=== PATIENT | female | born 1990 | race Caucasian/White ===

== ENCOUNTER 2020-03-06 16:20 | Inpatient (IN) ==
[2020-03-06] MEDS ORDERED: BUTORPHANOL TARTRATE 2 MG/ML VIAL IV PRN ×2 (16:45)
[2020-03-06] MEDS ORDERED: RINGER'S SOLUTION,LACTATED 1,000 ML IV PRN (16:45)
[2020-03-06] MEDS ORDERED: ONDANSETRON 4 MG TAB.RAPDIS PO PRN (16:45)
[2020-03-06] MEDS ORDERED: OXYTOCIN/0.9 % SODIUM CHLORIDE 30 UNITS/500 ML BAG IV ONE (16:45)
[2020-03-06] MEDS ORDERED: LIDOCAINE HCL 50 ML VIAL PERI PRN (16:45)
[2020-03-06] MEDS ORDERED: RINGER'S SOLUTION,LACTATED 1,000 ML IV ONE (16:45)
[2020-03-06 17:08] LABS: Hematocrit 34.5 % (37.0-47.0); Hemoglobin 11.1 gm/dL (12.5-16.0); Mean Cell Volume 88.2 fl (78-100); Mean Corpuscular Hemoglobin 28.4 pg (27-31); Mean Corpuscular Hgb Conc 32.2 g/dl (32-36); Mean Platelet Volume 11.5 fl (8-12.5); Neutrophil % 73.8 % (42-75.0); Platelet Count 254 K/mm3 (150-450); Red Blood Count 3.91 M/mm3 (4.2-5.4); Red Cell Distribution Width 13.7 % (11.5-14.0); White Blood Count 12.1 K/mm3 (4.0-10.5)
[2020-03-06 17:26] LABS: Albumin * 2.9 gm/dl (3.4-5.0); BUN/Creatinine Ratio 15.4 (9.0-21.6); Bilirubin, Total 0.2 mg/dL (0.0-1.1); Ca. Corrected For Albumin 9.2 mg/dL (8.4-10.2); Calcium * 8.6 mg/dL (7.9-10.9); Carbon Dioxide 21.5 mmol/L (24-32.6); Potassium 3.5 mmol/L (3.4-4.6); Total Protein 6.7 gm/dL (6.2-8.2)
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
[2020-03-06 18:40] LABS: Random Urine Total Protein 20.6 mg/dL (0-12)
[2020-03-06] MEDS ORDERED: BUPIVACAINE HCL/0.9 % NACL/PF 250 ML EP PRN (20:23)
[2020-03-06] MEDS ORDERED: NALOXONE HCL 1 MG/1 ML SYRG IV PRN (20:23)
[2020-03-06] MEDS ORDERED: ONDANSETRON HCL/PF 2 MG/ML VIAL IV PRN (20:23)
[2020-03-06] MEDS ORDERED: fentaNYL CITRATE/PF 50 MCG/ML AMPUL IT SCH (20:30)
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
--- NOTE | 2020-03-06 21:50 | ANES ---
Post Anesthesia Discharge - Transfer of Care Transfer of Care handoff given to nurse: Yes - Discharge from PACU Discharge from PACU when meets criteria: Yes - Comfortable post CSE.
--- NOTE | 2020-03-06 21:52 | ANES ---
Anesthesia Procedure Note Procedure Note: ANESTHESIA PROCEDURE NOTE Date of Procedure: 03/06/2020 Time of procedure: 2129. Performed by: ELISEO Santiago CRNA, MSN Load Mixer: Brit Espana RN. Preprocedure diagnosis: Active labor, labor pain. Post procedure diagnosis: Same. Procedure:Epidural for labor analgesia L3-4. Indications: Labor pain. Findings: See below. Details of the procedure: The patient was placed on the side of the bed in sitting positionand prepped with DuraPrep then draped in a sterile fashion. Lidocaine 1% was infiltrated to the skin and subcutaneous tissues at the level of the L3-4 interspace. An 18-gauge Touhy needle was used to approach the epidural space with loss of resistance technique. Once loss of resistance was achieved a 27-gauge spinal needle was passed through the epidural needle and CSF was contacted. After CSF returned, 20 mcg of fentanyl was injected in the spinal needle was removed the epidural catheter was then threaded approximately 4 cm in the epidural needle was removed. The catheter was taped in place and after careful aspiration 3 mL of 1.5% lidocaine with 1-200,000 epinephrine was injected without change in maternal heart rate or sensorium. . EBL: Minimal. Fluids: N/A. Specimen: N/A. Post procedure condition: The patient tolerated the procedure well with good relief. No complications were noted. Thank you for this consultation. Star Lindo CRNA, ARNP, MSN
--- NOTE | 2020-03-06 22:01 | ANES ---
Post Anesthesia Assessment - Vital Signs Vitals: Last Vital Signs Temp 37.4 C 03/06/20 16:49 Pulse 104 H 03/06/20 16:49 Resp 20 03/06/20 16:49 BP 143/100 H 03/06/20 16:49 Pulse Ox 97 03/06/20 16:49 Airway Patency: Normal - Mental Status Level Of Consciousness: Awake, Alert, Appropriate - Pain Level Pain Score: 0 - N/V Assessment Nausea/Vomiting Presence: None Dehydration:: No
[2020-03-07] MEDS ORDERED: CALCIUM CARBONATE 500 MG TAB.CHEW PO PRN (00:23)
--- NOTE | 2020-03-07 01:52 | OR ---
Operative Report - Dictated Report Narrative: Date of delivery: 03/07/2020 Time of delivery: 013 Gender: male weight: 3461 grams APGARS: 11/23 Procedure: Description of the procedure: The patient is a 29 year old at 38w 4d who underwent a medical IOL due to GHTN. She progressed to complete dilation. She delivered a viable male in JEWEL presentation. A loose nuchal cord was noted and reduced. The shoulders delivered without any difficulty followed by the rest of the . Cord clamping was delayed for 60 seconds due to vigorous . The cord was clamped and cut. Cord blood was collected. The placenta delivered by expression, intact, and without difficulty. There were no lacerations. Complications: none Specimens: cord blood History for MU Definition: * The number of deliveries resulting in a live the patient experienced prior to current hospitalization * The previous delivery of live twins or any live multiple gestation is considered one live event. *If primagravida or nulliparous is documented select zero for the number of previous live births. Live Events: 1
--- NOTE | 2020-03-07 01:54 | DS ---
OB Discharge Summary (1) 38 weeks gestation of Status: Acute (2) Encounter for supervision of other normal , third trimester Status: Acute (3) Gestational hypertension Status: Acute Qualifiers: Trimester: third trimester (4) Normal Pap smear Status: Acute (5) Rh negative status during Status: Acute Qualifiers: Trimester: third trimester Intrapartum Procedures: Spontaneous Vaginal Delivery, Anesthesia - Epidural Procedures: None /OP Complications: GHTN Discharge Diagnosis: Term -Delivered, Gestational Hypertension - Discharge Information Discharge Location: Home Disposition: Home self-care Activity on Discharge:: Activity as tolerated, Pelvic Rest Discharge Diet: General/regular food Complete Home Medications List: Complete Home Medication List: albuterol sulfate 90 mcg/actuation breath activated powder inhaler 2 inh IH Q6H 08/17/19 Aspirin 81 mg PO DAILY 02/28/20 Vits96/Iron Fum/Folic [ S] 1 tab PO DAILY 02/28/20 Psyllium Husk (with Sugar) [Metamucil] 1 ea PO DAILY 03/06/20 - Plan Discharge to:: Home Comment:: Routine Discharge Instructions Follow up in office in:: 6 weeks - Information Infant Complications: None
[2020-03-07] MEDS ORDERED: MISOPROSTOL 200 MCG TABLET RC ONE (02:04)
[2020-03-07] MEDS: IBUPROFEN 800 MG TABLET PO PRN ×3 (03:50→15:48)
[2020-03-07] MEDS: HYDROcodone/ACETAMINOPHEN 1 EACH TABLET PO PRN ×2 (08:13→13:56)
[2020-03-07] MEDS ORDERED: DOCUSATE SODIUM 100 MG CAPSULE PO SCH (09:00)
[2020-03-07] MEDS ORDERED: PSYLLIUM SEED 1 PACKET PACKET PO SCH (09:00)
[2020-03-07] MEDS: ALBUTEROL SULFATE 2.5 MG/0.5 ML VIAL.NEB IH SCH ×2 (09:52→14:18)
[2020-03-07 14:09] VITALS: BP 132/84
--- NOTE | 2020-03-07 16:46 | DS ---
OB Discharge Summary (1) 38 weeks gestation of Status: Acute (2) Encounter for supervision of other normal , third trimester Status: Acute (3) Gestational hypertension Status: Acute Qualifiers: Trimester: third trimester (4) Normal Pap smear Status: Acute (5) Rh negative status during Status: Acute Qualifiers: Trimester: third trimester Delivery Date: 03/07/20 Delivery Time: 01:30 :: 2 Para:: 2 Gestational weeks:: 38 Gestational days:: 4 Intrapartum Procedures: Spontaneous Vaginal Delivery, Anesthesia - Epidural Procedures: None /OP Complications: GHTN Discharge Diagnosis: Term -Delivered, Gestational Hypertension - Discharge Information Date of Discharge: 03/07/20 Discharge Location: Home Disposition: Home self-care Activity on Discharge:: Activity as tolerated, Pelvic Rest Discharge Diet: General/regular food Complete Home Medications List: Complete Home Medication List: albuterol sulfate 90 mcg/actuation breath activated powder inhaler 2 inh IH Q6H 08/17/19 Aspirin 81 mg PO DAILY 02/28/20 Vits96/Iron Fum/Folic [ S] 1 tab PO DAILY 02/28/20 Psyllium Husk (with Sugar) [Metamucil] 1 ea PO DAILY 03/06/20 - Plan Discharge to:: Home Comment:: Routine Discharge Instructions Follow up in office in:: 6 weeks - [place] Information Weight (Grams): 3,461 Sex: Male Score 1 min: 9 Score 5 min: 9 Infant Complications: None Other Complications: Respiratory distress
--- NOTE | 2020-03-07 17:33 | PN ---
Subjective - Date and Time Seen Date: 03/07/20 Time: 17:31 Subjective Narrative: Patient doing well but worried about baby understandably so Objective Objective Narrative: See vital signs - Review of Systems Generalized/Overall Review: Reports: No Symptoms Reported Endocrine: Reports: No Symptoms Reported - Vitals Vitals: Last Vital Signs Temp 37.2 C 03/07/20 14:08 Pulse 77 03/07/20 14:08 Resp 18 03/07/20 14:08 BP 132/84 03/07/20 14:08 Pulse Ox 98 03/07/20 14:08 - Abnormal Lab Findings Abnormal Lab Findings: Abnormal Lab Results 03/06/20 Range/Units 18:20 U Random Total Protein 20.6 H (0-12) mg/dL - Exam Constitutional: Present: Alert, Oriented x3, Cooperative, No distress ENT Exam: Present: hearing grossly normal Neck: Present: normal inspection Neurologic: Present: alert, normal mood/affect, oriented x 3 Appearance: Present: appropriate appearance, appropriate insight, neat, no m kathleen impairment Eye contact: Present: cooperative, good eye contact, normal speech Thoughts: Present: normal thought pattern Cauti Physician Documentation - Urinary Catheter Management Urethral (Mo) Urethral Indwelling: No Date of Insertion: 03/07/20 Time of Insertion: 22:30 Date of Removal: 03/07/20 Time of Removal: 01:20 Assessment/Plan Plan Narrative: PPD 1 s/p Doing well Discharge today since baby transferred to [place] - Problems/Diagnosis (1) 38 weeks gestation of Problem: Acute (2) Encounter for supervision of other normal , third trimester Problem: Acute (3) Gestational hypertension Problem: Acute Qualifiers: Trimester: third trimester (4) Normal Pap smear Problem: Acute (5) Rh negative status during Problem: Acute Qualifiers: Trimester: third trimester
[2020-03-08] MEDS ORDERED: ASPIRIN 81 MG TAB.CHEW PO SCH (09:00)
[2020-03-08] MEDS ORDERED: PRENATAL VITS96/IRON FUM/FOLIC 1 TAB TABLET PO SCH (09:00)
== END 2020-03-07 18:00 | disposition home or self-care (01) | DRG 807 ==
LOC: OB 16:20
PROVIDERS: ADMIT Obstetrics & Gynecology; ATTEND Obstetrics & Gynecology